=== PATIENT | male | born 1990 | race Caucasian/White ===

== ENCOUNTER 2020-02-04 02:53 | Inpatient (IN) | payer SELFPAY ==
[2020-02-04] VITALS (50 sets, daily range): BP systolic 87–142; BP diastolic 45–87; PULSE 91–143; RESP 14–32; TEMP 36.5–39.7; O2SAT 91–100; BMI 33.3; BMI 32.3
--- NOTE | 2020-02-04 02:51 | ECG_ITS ---
APPROVED REPORT Exam: Resting ECG HR:129 bpm ECG Measurements Heart Rate 129 AXES NH 164 P 44 QRSd 86 QRS 86 QT 408 T 46 QTc 597 <Conclusion> Sinus tachycardia Otherwise normal ECG Electronically signed by : Edu Coello, 02/04/2020 09:58:54
--- NOTE | 2020-02-04 02:54 | XR_ITS ---
PROCEDURE: XR CHEST PORTABLE CLINICAL HISTORY: fever COMPARISON: No exams were available for comparison FINDINGS: The cardiomediastinal silhouette and pulmonary vascularity are within normal limits. No definite lobar consolidation or collapse. There are increased markings in the lung bases greatest in the retrocardiac region on the left which may be due to vascular crowding. Upright PA and lateral chest may confirm and to exclude possibility of underlying infiltrate. No acute bony abnormalities. IMPRESSION: No definite acute finding. Please see above for detail Dictated by: Davis Sanchez MD 02/04/2020 06:17 Davis Sanchez MD in [facility] 02/04/2020 06:17
--- NOTE | 2020-02-04 02:54 | CT_ITS ---
PROCEDURE: CT HEAD/BRAIN WO CON CLINICAL INDICATION: ams Altered mental status, altered level of consciousness, confusion, disorientation COMPARISON: No exams were available for comparison TECHNIQUE: Axial images obtained. All CT scans at the facility use one or more dose reduction, viz: automated exposure control, ma/kV adjustment per patient size (including targeted exams where dose is matched to indication, i.e. head), or iterative reconstruction technique. FINDINGS: No midline shift, mass effect, intracranial hemorrhage, hydrocephalus, or extra-axial fluid collection is evident. Encephalomalacia changes in the right frontal lobe and medial aspect of the left frontal lobe. There is an old medial right orbital wall fracture is well as an old fracture of the frontal sinuses with depression in the frontal cranium with metallic mesh in place. There is no right lateral orbital wall fracture. The. No mastoid effusion. There is opacification of the sphenoid sinus on the right with moderate mucosal thickening of the sphenoid sinus centrally and right ethmoid sinus mucosal thickening. IMPRESSION: 1. No acute intracranial findings. 2. Old right orbital and old frontal calvarial fracture. 3. Sinus disease Dictated by: Davis Sanchez MD 02/04/2020 06:41 Davis Sanchez MD in [facility] 02/04/2020 06:41
--- NOTE | 2020-02-04 02:57 | HMH.EDGENADL ---
ED Disposition Clinical Impression: Bacterial meningitis, Septic shock, Seizure, Influenza Disposition: Xfer Short-Term Hosp Condition on Discharge: Serious Referrals: Hi Hogan MD [Primary Care Provider] - - Critical Care Critical Care Time: Yes Attestation: On , the high probability of a clinically significant, sudden or life threatening deterioration of the following system(s) required my full and direct attention, intervention and personal management. The time I documented below is in addition to time spent performing reported procedures but includes the following listed in this critical care notation. Total Critical Care Time: 60 Vital system(s) involved:: Shock (Septic) My critical care processes included: Assessment & monitoring of V/S, Initial and Re-exams, Data Review/Interpretation, Coordinating Care, Medication Orders and management, Documentation Medical Decision Making - Medical Records Medical records reviewed: Yes: I reviewed the patient's medical records. - Ck Inquiry Pt receiving controlled substance: No Vital Signs: 02/04/20 02:54 02/04/20 03:15 02/04/20 03:34 Temperature 103.4 F H 103 F H Temperature Source Rectal Rectal Oral Pulse Rate [Left] 139 H 128 H Respiratory Rate 26 H 24 Blood Pressure [Right Arm] 101/59 L 108/63 L Blood Pressure Mean [Right Arm] 73 78 Blood Pressure Source [Right Arm] Automatic Cuff Blood Pressure Position [Right Arm] Supine 02 Sat by Pulse Oximetry 93 L 91 L Oxygen Delivery Method Room Air Room Air Oxygen Flow Rate (LPM) 02/04/20 03:41 02/04/20 03:42 02/04/20 03:56 Temperature Temperature Source Pulse Rate [Left] 130 H Respiratory Rate 22 Blood Pressure [Right Arm] 106/58 L Blood Pressure Mean [Right Arm] 74 Blood Pressure Source [Right Arm] Automatic Cuff Blood Pressure Position [Right Arm] Sitting 02 Sat by Pulse Oximetry 91 L 91 L 92 L Oxygen Delivery Method Nasal Cannula Nasal Cannula Nasal Cannula Oxygen Flow Rate (LPM) 2 2 3 02/04/20 03:57 02/04/20 03:59 02/04/20 04:04 Temperature 101.2 F H Temperature Source Oral Pulse Rate [Left] 125 H 143 H Respiratory Rate 20 20 Blood Pressure [Right Arm] 107/50 L Blood Pressure Mean [Right Arm] 69 Blood Pressure Source [Right Arm] Automatic Cuff Blood Pressure Position [Right Arm] Sitting 02 Sat by Pulse Oximetry 92 L 93 L Oxygen Delivery Method Nasal Cannula Nasal Cannula Oxygen Flow Rate (LPM) 3 3 02/04/20 04:14 02/04/20 04:32 02/04/20 05:00 Temperature Temperature Source Pulse Rate [Left] 134 H 107 H 111 H Respiratory Rate 20 18 18 Blood Pressure [Right Arm] 109/53 L 99/55 L 108/61 L Blood Pressure Mean [Right Arm] 71 69 76 Blood Pressure Source [Right Arm] Blood Pressure Position [Right Arm] Sitting 02 Sat by Pulse Oximetry 93 L 93 L 94 L Oxygen Delivery Method Nasal Cannula Nasal Cannula Nasal Cannula Oxygen Flow Rate (LPM) 3 3 3 02/04/20 05:14 02/04/20 05:35 02/04/20 06:02 Temperature Temperature Source Pulse Rate [Left] 107 H 108 H 95 H Respiratory Rate 20 16 16 Blood Pressure [Right Arm] 121/70 117/66 96/45 L Blood Pressure Mean [Right Arm] 87 83 62 Blood Pressure Source [Right Arm] Automatic Cuff Automatic Cuff Automatic Cuff Blood Pressure Position [Right Arm] Supine Sitting Sitting 02 Sat by Pulse Oximetry 95 98 98 Oxygen Delivery Method Nasal Cannula Nasal Cannula Nasal Cannula Oxygen Flow Rate (LPM) 3 2 02/04/20 06:13 02/04/20 06:39 02/04/20 06:57 Temperature 99.9 F H Temperature Source Oral Pulse Rate [Left] 104 H 105 H 109 H Respiratory Rate 18 18 Blood Pressure [Right Arm] 117/63 98/52 L 116/81 Blood Pressure Mean [Right Arm] 81 67 92 Blood Pressure Source [Right Arm] Automatic Cuff Automatic Cuff Blood Pressure Position [Right Arm] Supine 02 Sat by Pulse Oximetry 94 L 95 94 L Oxygen Delivery Method Nasal Cannula Nasal Cannula Nasal Cannula Oxygen Flow Rate (LPM) 3 3 02/04/20
--- NOTE | 2020-02-04 03:02 | PC.NURSE ---
ATTENDING PROVIDER NOTIFIED OF SEPSIS CRITERIA: ELEVATED RR, LOW BP, AMS, AND ELEVATED FEVER. DEFERRING SEPSIS 30ML/KG AT THIS TIME. 1 NS LITER ADMINISTERED
--- NOTE | 2020-02-04 03:17 | PC.NURSE ---
PT gone to CT
[2020-02-04 03:18] LABS: Microscopic, Urine URINE MICROSCOPIC (MICROSCOPIC)
[2020-02-04 03:23] LABS: Appearance,Urine CLEAR (Clear); Bilirubin,Urine Negative (Negative); Blood, Urine TRACE-I (Negative); Color,Urine YELLOW (Yellow); Glucose,Urine (UA) Negative (Negative); Ketones,Urine Negative (Negative); Leukocyte Esterase,Urine Negative (Negative); Nitrate,Urine Negative (Negative); Protein,Urine Negative (Negative); Urobilinogen,Urine 0.2 EU/dl (0.2)
[2020-02-04 03:26] LABS: Basophils % 0.1 % (0.1-2.0); Eosinophils % 0.2 % (0.1-12.0); Hematocrit 43.8 % (42.0-52.0); Hemoglobin 15.1 g/dL (14.1-18.0); Lymphocytes # 0.8 K/mm3 (0.7-4.5); Lymphocytes % 4.3 % (10-50); Mean Corpuscular HGB Conc 34.5 g/dL (31.8-35.4); Mean Corpuscular Hemoglobin 29.5 pg (27.0-31.2); Mean Corpuscular Volume 85.4 fl (80-94); Mean Platelet Volume 7.9 fl (7.4-10.4); Monocytes # 0.7 K/mm3 (0.1-1.0); Neutrophils # 16.3 K/mm3 (1.8-7.8); Neutrophils % 91.4 % (37.0-80.0); Platelet Count 351 K/mm3 (142-424); Red Blood Count 5.13 M/mm3 (4.60-6.20); Red Cell Distribution Width 13.2 % (11.5-17.5); White Blood Count 17.8 K/mm3 (4.8-10.8)
[2020-02-04 03:28] LABS: MANUAL DIFFERENTIAL MANUAL DIFFERENTIAL (MANUAL DIFF)
[2020-02-04 03:30] LABS: Alanine Aminotransferase 32 U/L (12-78); Albumin Level 4.5 g/dl (3.5-5.0); Albumin/Globulin Ratio 1.5 (1.1-1.8); Alkaline Phosphatase 87 U/L (38-126); Anion Gap 16.2 mEq/L (5-15); Aspartate Amino Transferase 45 U/L (17-59); Bilirubin,Total 0.5 mg/dl (0.2-1.3); Blood Urea Nitrogen 14 mg/dl (9-20); Calcium 10.2 mg/dl (8.4-10.2); Carbon Dioxide 23 mmol/L (22.0-30.0); Chloride 110 mmol/L (98-107); Creatinine Clearance Estimated 154 mL/min (50-200); Estimated Glomerular Filt Rate 73 ml/min (>60); GFR (African American) 88 ML/MIN (>60); Glucose 120 mg/dl (74-100); Potassium 3.2 mmoL/L (3.5-5.1); Sodium 146 mmol/L (136-145); Total Protein,Serum 7.5 g/dl (6.3-8.2)
[2020-02-04 03:32] LABS: Bacteria,Urine Trace /lpf; Hyaline Casts,Urine Occasional #/lpf (0)
[2020-02-04 03:36] LABS: Lactic Acid 4.8 mmol/L (0.7-2.1)
--- NOTE | 2020-02-04 03:37 | PC.NURSE ---
SEPSIS CRITERIA MET FURTHER WITH LACTIC ELEVATION. ATTENDING DEFERRED BROAD SPECTRUM ABX AT THIS TIME
--- NOTE | 2020-02-04 03:37 | PC.NURSE ---
Notified MD of lactic of 4.2 He advised to go ahead and start the sepsis bolus. Order entered. Pt has liter hanging at this time. Waiting on chest x-ray to decide on antibiotics
[2020-02-04 03:40] LABS: Eosinophils % 1 % (0-3); Lymphocytes % 3 % (10-50); Neutrophils % 87 % (42-76); Platelet Estimate Normal; RBC Morphology Normal; Total Cells Counted 100
--- NOTE | 2020-02-04 03:40 | PC.NURSE ---
Patient placed on 2 lpm nasal cannula
--- NOTE | 2020-02-04 03:44 | PC.NURSE ---
PORTABLE CHEST COMPLETED BEDSIDE BY SILVIO
[2020-02-04 03:46] LABS: Coronavirus 19 IgG Antibody Positive (Negative); Coronavirus 19 IgM Antibody Negative (Negative)
[2020-02-04 03:53] LABS: Strep Scrn Group A (Rapid) Negative (Negative)
--- NOTE | 2020-02-04 03:57 | PC.NURSE ---
advised he wanted to do a lumbar puncture. materials gathered and pt set up for procedure
--- NOTE | 2020-02-04 04:33 | PC.NURSE ---
spoke with Sean from pharmacy about vanc dosing. HE advised to give a one time dose of 2250mg and if we admitted the patient to enter a consult for the morning and they would dose him
[2020-02-04 04:50] LABS: Glucose,CSF 52 mg/dl (40-70)
[2020-02-04 04:52] LABS: Appearance,CSF Cloudy (Clear)
[2020-02-04 04:54] LABS: Polynuclear WBCs,CSF 84 %; Red Blood Cell,CSF 46 cells/uL (0); Volume,CSF 4 mL; White Blood Cell,CSF 5413 cells/uL (0-5)
[2020-02-04 04:55] LABS: Mononuclear WBCs,CSF 16 %
--- NOTE | 2020-02-04 05:02 | PC.NURSE ---
Dr.Norfleet alves
--- NOTE | 2020-02-04 05:09 | PC.NURSE ---
notified of critical lab results
--- NOTE | 2020-02-04 05:13 | PC.NURSE ---
spoke with Dr. Schofield and we are going to attempt to transfer pt at this time. If unable to obtain a bed then we can admit him to [facility]
--- NOTE | 2020-02-04 05:14 | PC.NURSE ---
At 4am pt was prepared for lumbar puncture, procedure consent signed and supplies were gathered. PT placed on the side of the bed in a sitting position with head on a table. JYOTI Trujillo and JYOTI Mayes assisting patient sitting up on the side of the bed. Dr. Cha cleaned the site and used 20g spinal needle to perform procedure. Pt tolerated procedure well. 4 vials of CSF were obtained and were cloudy in appearance. Tubes were labeled at bedside and JYOTI Mayes walked tubes to the lab.
--- NOTE | 2020-02-04 05:31 | PC.NURSE ---
Spoke with [facility]. Stated they would call us back
--- NOTE | 2020-02-04 05:36 | PC.NURSE ---
Dr Lipscomb (urology) at [facility] paged at this time.
--- NOTE | 2020-02-04 05:54 | PC.NURSE ---
speaking with from [facility]. HE advised that was on divert and they would not place pt on waitlist
--- NOTE | 2020-02-04 05:58 | PC.NURSE ---
[facility] added patient to waiting list
--- NOTE | 2020-02-04 06:00 | PC.NURSE ---
Calling [facility]
--- NOTE | 2020-02-04 06:03 | PC.NURSE ---
[facility] stated the hospitalist will call back
--- NOTE | 2020-02-04 06:09 | PC.NURSE ---
speaking to dr combs from [facility]
--- NOTE | 2020-02-04 06:11 | PC.NURSE ---
[facility] stated the pt was accepted but did not have a bed at this time and would be placed on a waiting list
--- NOTE | 2020-02-04 06:13 | PC.NURSE ---
Notified lab of in house covid swab. Approved by warehouser
--- NOTE | 2020-02-04 06:29 | PC.NURSE ---
Lab at bedside
--- NOTE | 2020-02-04 06:29 | PC.NURSE ---
speaking to dr baltazar at [facility]
--- NOTE | 2020-02-04 06:35 | PC.NURSE ---
advised pt is also accepted at [place] and will be going to the ICU. Did not have any idea on bed status at this time. Asked [facility] to bring a bed from second floor to help keep the patient comfortable.
--- NOTE | 2020-02-04 06:57 | PC.NURSE ---
CHECKING DEPARTMENT SUPERVISOR HAS BROUGHT INPATIENT BED DOWN UNTIL BED ASSIGNMENT FROM [facility] OR [facility]
--- NOTE | 2020-02-04 07:05 | PC.NURSE ---
House brought down bed for patient. We moved patient over to bed and repositioned.
[2020-02-04 07:14] LABS: Reflex Lactic Add Lactic Reflex
--- NOTE | 2020-02-04 07:47 | PC.NURSE ---
[facility] still no beds available, they will call back approx 11 am.
[2020-02-04 08:03] LABS: Lactic Acid Follow Up (RFLX 1) 2.2 mmol/L (0.7-2.1)
--- NOTE | 2020-02-04 08:19 | PC.NURSE ---
Addendum entered by Sherron Bentley RN 02/04/20 11:55: GAVE PATIENT SEVERAL GLASSES OF WATER, PT SAID SHE WILL USE THE FACET TO GIVE HIM MORE NEEDED. Original Note: Pt at beside at this time, pt is resting in the bed, denies pain after medication given.
--- NOTE | 2020-02-04 09:00 | PC.NURSE ---
REPOSITIONED PT IN BED AND ADMINISTERED MEDICATION FOR HIS GIRON. ALSO GAVE PT 2 GLASSES OF WATER.
--- NOTE | 2020-02-04 09:02 | PC.NURSE ---
[facility]y hunter and [facility] advised of Pt positive Covid test.
[2020-02-04 10:00] LABS: Reflex Lactic (2 hrs) Add Lactic Reflex
--- NOTE | 2020-02-04 10:00 | PC.NURSE ---
NOTIFIED THAT SHE CANNOT LEAVE THE ROOM AND IF SHE DOES SHE MUST NOT COME BACK IN D/T PT ISOLATION STATUS, STATES SHE UNDERSTANDS
--- NOTE | 2020-02-04 11:00 | PC.NURSE ---
PT RESTING AND HAS NO COMPLAINTS OTHER THAN A GLASS A WATER, 3 GLASSES OF WATER PROVIDED.
--- NOTE | 2020-02-04 11:15 | PC.NURSE ---
[facility] called they are trying to discharge pt and make availability of a room, they will call back. pt called she was also given this update.
--- NOTE | 2020-02-04 11:45 | PC.NURSE ---
ADMISSIONS LET PT MOTHER BACK, NOTIFIED ADMISSIONS THAT THERE ARE TO BE NO MORE VISITORS D/T PT ISOLATION STATUS, NOTIFIED MOTHER THAT SHE MUST STAY IN THE ROOM AND MUST WEAR PPE, MOTHER STATES SHE UNDERSTANDS.
--- NOTE | 2020-02-04 12:05 | PC.NURSE ---
PROVIDED PT WITH 2 PITCHES OF WATER, CALL S[facility], AND UPDATE ON POC
--- NOTE | 2020-02-04 12:08 | PC.NURSE ---
PT MOTHER ASKED IF SHE COULD ADMINISTER PT HOME MEDICATION FOR DIABETES INSIPIDUS, DR ROJAS STATED THAT WAS FINE FOR HIM TO HAVE IT.
--- NOTE | 2020-02-04 12:35 | PC.NURSE ---
[facility] CALLED AND STATED THEY WILL POSSIBLY HAVE A BED AVAILABLE LATER ON TODAY
--- NOTE | 2020-02-04 13:28 | PC.NURSE ---
pt family offered a meal tray, she stated not at this time and that he was asleep and that she would let us know if he woke up and if he wsanted anything.
--- NOTE | 2020-02-04 13:34 | PC.NURSE ---
Dr Schofield accepted pt for admission. the hospitals we have been waiting for are not availableto provide a bed at this time. a bed.
[2020-02-04 13:41] LABS: Lactic Acid Follow up (RFLX 2) 1.1 mmol/L (0.7-2.1)
--- NOTE | 2020-02-04 15:34 | PC.NURSE ---
UPDATED MOTHER AND PT ON POC, MOTHER ASKED ABOUT THE VISITOR POLICY IN THE COVID UNIT, EDUCATED HER THAT THERE ARE NO VISITORS ALLOWED IN THE UNIT, MOTHER STATES SHE WISHES TO SPEAK TO DESKTOP MANAGER, NOTED HOUSE AT THIS TIME
--- NOTE | 2020-02-04 15:43 | PC.NURSE ---
HOUSE AT BESIDE
--- NOTE | 2020-02-04 16:00 | PC.NURSE ---
REFILLED PT PITCHER OF WATER AT THIS TIME
--- NOTE | 2020-02-04 16:08 | PC.NURSE ---
[facility] called stating it was not looking good for bed placement at this time.
--- NOTE | 2020-02-04 16:09 | PC.NURSE ---
TERRY AND THIS NURSE SPOKE TO MOTHER AND PT , BOTH REFUSE FOR PT TO BE ADMITTED UNLESS THEY CAN BE AT HIS BEDSIDE. SPEAKING TO RIA HAHN, DIRECTER OF NURSING SERVICES.
--- NOTE | 2020-02-04 16:15 | PC.NURSE ---
HOUSE SPEAKING TO RIA HAHN AT THIS TIME
--- NOTE | 2020-02-04 16:32 | PC.NURSE ---
ACCOMPANIED TERRY AT THIS TIME TO SPEAK WITH PT AND MOTHER ON WHAT RIA HAS TOLD US. WE ARE GIVING THE MOTHER PRIVILEGES TO STAY WITH PATIENT AND GAVE HER STRICT RULES ON STAYING WITH HIM. PT MUST WEAR THE APPROPRIATE PPE DIRECTED BY [facility]OB[facility]. PT MOTHER AGREES TO THESE TERMS, ALSO EDUCATED MOTHER THAT SHE IS PUTTING HERSELF AT RISK FOR BEING AROUND HIM AND THAT WE ARE NOT RESPONSIBLE FOR HER GETTING SICK, PT MOTHER STATES SHE AGREES TO THOSE TERMS WELL. EDUCATED MOTHER THAT IF SHE DOES NOT FOLLOW THESE RULES SHE WILL BE ESCORTED OUT BY THE POLICE.
--- NOTE | 2020-02-04 16:34 | PC.NURSE ---
Spoke with Loretta Nunez, reproduction machine loader services regarding patients mothers request to remain with patient in covid unit. Loretta states she may remain with the patient on the covid unit but she must wear atleast a surgical mask, she must remain in the room as much as possible, they cannot trade out visitors, only she may remain with patient. I spoke with patients mother and she is agreeable to patient being admitted to the covid unit, she verbalized understanding of the requirements to remain with the patient. I also provided education to her regarding the risks of exposing herself to covid 19, meningitis, and flu A. She states she understands the risks of her exposure and does not hold the hospital liable if she were to contract any of these. Covid nurse contacted at this time to transport patient to covid unit.
--- NOTE | 2020-02-04 17:06 | HMH.HP ---
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 He was brought to the emergency room in the science liaison hours this morning with fever, headache, possible seizure, and altered mental status. His states he was sick about 2 weeks ago with fever and mild cough but seemed to get better. Last night he began complaining of a severe headache. He took some Tylenol and went to bed. He then started having rigors in bed and at some point vomited and seemed to feel better. After returning to bed he began thrashing around and became incoherent as if he was having a seizure. His checked his temperature and it was up to 103. EMS was called and he was brought to the emergency room. Please refer to ER record for details. Because of his presentation with fever headache and altered mental status as well as findings of nuchal rigidity on physical exam he was worked up for meningitis. His initial CBC showed a white count of 17,000. Lumbar puncture was performed with findings of greater than 5000 white blood cells, predominantly PMNs as well as elevated protein. Also of note, he was positive for influenza A and on COVID serologies his IgG was positive and IgM negative. Lactic acid was elevated at 4.4. He was started on fluid bolus per sepsis protocol. He also was given IV dexamethasone, IV Rocephin and IV vancomycin after blood cultures were obtained. Because of the critical nature of his illness, attempts were made to transfer him to a higher level of care. The [facility] was contacted and found to be on diversion and not accepting patients. [facility] was willing to accept the patient but did not have a bed immediately available and placed the patient on a waiting list. [facility] accepted the patient for the next available ICU bed at about 7 AM this morning. By 3 PM this afternoon, the transfer had still not happened and and neither hospital could give an estimated time for the next available bed. The patient has therefore now been admitted to [facility] for ongoing treatment pending transfer as soon as a bed is available. Also note that his COVID nasal swab has returned positive for acute infection. [facility] History Medical History: Denies:: Cancer, Diabetes Mellitus Type 1, Diabetes Mellitus Type 2, MRSA *Have you ever received a pneumonia vaccine?: No *Have you received a flu vaccine this season?: No Other Medical History: Reports: Other (Central diabetes insipidus) Other Surgeries: Yes: Other (Facial plastic surgery, ORIF ankle fracture) Amputation: No Fractures: Yes (FACIAL/SKULL DUE TO fall off scaffolding) - *Social History Smoking Status: Never smoker Alcohol Intake: never *Occupational Status:: employed *Travel in the last 8 weeks: None Family Hx:: No significant family history Review of Systems - Constitutional Reports chills, Reports fever(s), Denies weight loss - Eyes Denies change in vision - ENT Denies dizziness, Denies ear pain, Denies nasal congestion, Denies nasal discharge, Denies sore throat - *Cardiovascular Denies chest pain, Denies shortness of breath - *Respiratory Denies chest congestion, Denies cough, Denies shortness of breath - *Gastrointestinal Denies abdominal pain, Denies vomiting blood - *Genitourinary Reports urinary frequency, Denies difficulty urinating - *Musculoskeletal Denies joint pain - Integumentary/Breasts Denies non-healing lesions - *Neurologic Reports confusion, Reports seizure-like activity, Reports other (Per HPI), Denies abnormal hearing - Psychiatric Denies anxiety, Denies depression - Endocrine Reports increased urination - Hematologic/Lymphatic Denies easy bruising - Allergic/Immunologic Denies throat swelling Meds Home Medications
--- NOTE | 2020-02-04 20:26 | PC.NURSE ---
Verified pt's at home med of Desmopressing Acetate 0.2 mg PO BID with [facility]. Ok'd to give med. Med is currently locked in ICU clean utility room and will be labeled tomorrow with in-house pharmacy label per [facility].
--- NOTE | 2020-02-04 21:36 | PC.NURSE ---
Ro with [facility] called to check on status of pt. Informed this nurse that she will call q4-6h to check on status of pt. Stated that their are no ICU beds available tonight, but potentially there will be some tomorrow AM, pending discharges. [phone]
[2020-02-05] VITALS: BP 110/60; PULSE 93; RESP 18; TEMP 37.9; O2SAT 95
--- NOTE | 2020-02-05 03:04 | PC.NURSE ---
Pt has rested continuously t/o shift. Pt was febrile x1 this shift, PRN acetaminophen was administered per JUL. Pt has remained afebrile since. Rios is draining clear, dark yellow urine with a strong odor per gravity. Mother has remained at bedside and continues to wear appropriate PPE in and out of room when going to the restroom. Pt has showed NSR on heart monitor with short episodes of Sinus tach t/o this shift. No other complaints or acute changes at this time. Will continue to monitor.
[2020-02-05 04:26] VITALS: BP 97/66; PULSE 64; RESP 16; TEMP 37.2; O2SAT 94
--- NOTE | 2020-02-05 05:04 | PC.NURSE ---
Ro from [facility] spoke to Elliot Hooks RN. Stated there are still no available ICU beds but will continue to update of any changes.
[2020-02-05 05:05] VITALS: BMI 33.3
--- NOTE | 2020-02-05 05:20 | PC.NURSE ---
[facility] called. Stated there are currently no beds available at this time and will notify when one becomes available.
--- NOTE | 2020-02-05 05:42 | PC.NURSE ---
Pt remains in stable condition this shift. I concur with all findings documented by and care given by JYOTI Grossman this shift.
--- NOTE | 2020-02-05 05:46 | PC.NURSE ---
Ro from [facility] called. Stated that there will possibly be an available bed this morning after shift change. Stated she will have someone call and confirm as soon as possible.
[2020-02-05 06:42] LABS: Eosinophils # 0.1 K/mm3 (0.0-0.4); Eosinophils % 0.4 % (0.1-12.0); Hematocrit 40.9 % (42.0-52.0); Hemoglobin 13.7 g/dL (14.1-18.0); Lymphocytes % 4.1 % (10-50); Mean Corpuscular HGB Conc 33.5 g/dL (31.8-35.4); Mean Corpuscular Volume 86.4 fl (80-94); Mean Platelet Volume 8.2 fl (7.4-10.4); Monocytes # 0.5 K/mm3 (0.1-1.0); Monocytes % 2.3 % (1.7-9.3); Neutrophils # 21.8 K/mm3 (1.8-7.8); Neutrophils % 93.2 % (37.0-80.0); Platelet Count 331 K/mm3 (142-424); Red Blood Count 4.73 M/mm3 (4.60-6.20); Red Cell Distribution Width 13.1 % (11.5-17.5); White Blood Count 23.4 K/mm3 (4.8-10.8)
[2020-02-05 06:47] LABS: MANUAL DIFFERENTIAL MANUAL DIFFERENTIAL (MANUAL DIFF)
[2020-02-05 06:50] LABS: Alanine Aminotransferase 16 U/L (12-78); Albumin Level 3.8 g/dl (3.5-5.0); Albumin/Globulin Ratio 1.2 (1.1-1.8); Alkaline Phosphatase 71 U/L (38-126); Aspartate Amino Transferase 24 U/L (17-59); Bilirubin,Total 0.4 mg/dl (0.2-1.3); Blood Urea Nitrogen 8 mg/dl (9-20); Carbon Dioxide 25 mmol/L (22.0-30.0); Chloride 117 mmol/L (98-107); Creatinine Clearance Estimated 206 mL/min (50-200); Estimated Glomerular Filt Rate 101 ml/min (>60); GFR (African American) 122 ML/MIN (>60); Globulin 3.1 g/dL (1.3-3.2); Glucose 152 mg/dl (74-100); Sodium 148 mmol/L (136-145); Total Protein,Serum 6.9 g/dl (6.3-8.2)
[2020-02-05 07:09] LABS: Calcium 9.1 mg/dl (8.4-10.2)
[2020-02-05 07:10] LABS: Lymphocytes % 2 % (10-50); Neutrophils % 90 % (42-76); Platelet Estimate Normal; RBC Morphology Normal; Total Cells Counted 100
--- NOTE | 2020-02-05 07:54 | PC.NURSE ---
[facility] called to check on the patient and get an updated report on him. They said they would call back shortly once they discussed everything and made a decision on if they wanted to accept him or not.
[2020-02-05 07:55] VITALS: BP 123/69; PULSE 103; RESP 18; TEMP 37.4; O2SAT 93
--- NOTE | 2020-02-05 08:00 | PC.NURSE ---
[facility] called to let us know a bed still isn't available. They will call periodically throughout the day to update us.
[2020-02-05 08:10] VITALS: O2SAT 93
--- NOTE | 2020-02-05 08:39 | HMH.ACPN2 ---
Internal Medicine - PN: Subj *Date: 02/05/20 *Time: 08:39 Interval history: He rested fairly well through the night. No new complaints this morning. His headache is a little better. His eyes are sore . He is not eating much but drinking well. He feels thirsty. No further nausea. Minimal cough. No shortness of breath. Exam Vital signs and Labs for Last 24 Hours: Temp Pulse Resp BP Pulse Ox 99.3 F 103 H 18 123/69 93 L 02/05/20 07:55 02/05/20 07:55 02/05/20 07:55 02/05/20 07:55 02/05/20 08:10 Laboratory Results - last 24 hr 02/04/20 13:30: Lactate 1.1 02/05/20 06:30: WBC 23.4 H* D, RBC 4.73, Hgb 13.7 L, Hct 40.9 L, MCV 86.4, MCH 29.0, MCHC 33.5, RDW 13.1, Plt Count 331, MPV 8.2, Neut % (Auto) 93.2 H, Lymph % (Auto) 4.1 L, [place] % (Auto) 2.3, Eos % (Auto) 0.4, Baso % (Auto) 0.0 L, Neut # (Auto) 21.8 H, Lymph # (Auto) 1.0, Snyder # (Auto) 0.5, Eos # (Auto) 0.1, Baso # (Auto) 0.0, Total Counted 100, Neutrophils % (Manual) 90 H, Band Neutrophils % 8.0, Lymphocytes % (Manual) 2 L, Platelet Estimate Normal, RBC Morphology Normal 02/05/20 06:30: Sodium 148 H, Potassium 4.0 D, Chloride 117 H, Carbon Dioxide 25, Anion Gap 10.0, BUN 8 L D, Creatinine 0.90 D, Estimated Creat Clear 206, Estimated GFR 101, Est GFR ( Amer) 122 D, Glucose 152 H, Calcium 9.1 D, Total Bilirubin 0.4, AST 24 D, ALT 16 D, Alkaline Phosphatase 71, Total Protein 6.9, Albumin 3.8 D, Globulin 3.1, Albumin/Globulin Ratio 1.2 I & O for Last 24 hours: Intake & Output 02/02/20 02/03/20 02/04/2002/04/20 11:59 11:59 11:59 11:59 Intake Total 9390 / 9390 Output Total 5600 / 5600 5925 / 5925 Balance -5600 / -5600 3465 / 3465 Weight 260 lb 259 lb 14.4 oz Microbiology Reports for the Last 24 Hours: Microbiology 02/04/20 04:19 Cerebral Spinal Fluid Gram Stain - Final 02/04/20 04:19 Cerebral Spinal Fluid CSF Culture - Preliminary Gram Positive Cocci 02/04/20 03:08 Blood Blood Culture - Preliminary Gram Positive Cocci 02/04/20 03:06 Blood Blood Culture - Preliminary 02/04/20 03:03 Urine,Clean Catch Urine Culture - Preliminary NO GROWTH AFTER 24 HOURS 02/04/20 06:30 Nasopharyngeal Coronavirus COVID-19 PCR - Final Narrative: He is awake and alert. Appears in no distress. Color is good. Vital signs are stable. Still has lungs are clear to auscultation. Heart is regular. Abdomen is soft and nondistended. No tenderness. Assessment and Plan (1) Pneumococcal meningitis Current visit: Yes Status: Acute Category: Medical Code(s): G00.1 - Pneumococcal meningitis (2) Pneumococcal sepsis Current visit: Yes Status: Acute Category: Medical Code(s): A40.3 - Sepsis due to Streptococcus pneumoniae (3) Influenza Current visit: Yes Status: Acute Category: Medical Code(s): J11.1 - Influenza due to unidentified influenza virus with other respiratory manifestations (4) Coronavirus infection Current visit: Yes Status: Acute Category: Medical Code(s): B34.2 - Coronavirus infection, unspecified (5) Diabetes insipidus Current visit: Yes Status: Acute Category: Medical Code(s): E23.2 - Diabetes insipidus - Assessment and plan all Dx Assessment and Plan for all problems:: Clinically stable this morning. White blood cell count is further elevated to 23,000 this morning likely related to steroids. PCR on his blood culture is showing streptococcal pneumoniae. Sensitivities are pending. We will continue current antibiotic regimen pending final sensitivities. Still awaiting transfer to tertiary care center for infectious disease and neurology consultation. I have spoken with Dr. Alicja Swanson, hospitalist at [facility], and provided an update of his condition. They may have a bed available for him this morning.
--- NOTE | 2020-02-05 08:48 | PC.NURSE ---
Dr. Schofield called to say he spoke with hospitalist at [facility] and pt has been accepted there. He said hopefully they will call shortly w a bed assignment.
--- NOTE | 2020-02-05 08:57 | PC.NURSE ---
Spoke w [facility]. They're requesting a face sheet be faxed over and they will call back shortly w bed assignment.
--- NOTE | 2020-02-05 09:00 | PC.NURSE ---
Faxed facesheet to [facility].
--- NOTE | 2020-02-05 10:03 | P.CONPHA_ITS ---
- Pharmacy Consult Date: 02/05/20 Time: 10:03 Referring provider: DR. BLUM Reason for Consult:: VANCOMYCIN DOSING Allergies and ADEs:: Allergies Allergy/AdvReac Type Severity Reaction Status Date / Time No Known Allergies Allergy Verified 02/04/20 18:50 Home Medications:: Home Medications Medication Instructions Recorded Confirmed Type Desmopressin Acetate 0.2 mg PO BID 02/04/20 02/04/20 History Height: 1.88 m Weight: 117.889 kg Laboratory Results:: Laboratory Results - last 24 hr 02/04/20 13:30: Lactate 1.1 02/05/20 06:30: WBC 23.4 H* D, RBC 4.73, Hgb 13.7 L, Hct 40.9 L, MCV 86.4, MCH 29.0, MCHC 33.5, RDW 13.1, Plt Count 331, MPV 8.2, Neut % (Auto) 93.2 H, Lymph % (Auto) 4.1 L, [place] % (Auto) 2.3, Eos % (Auto) 0.4, Baso % (Auto) 0.0 L, Neut # (Auto) 21.8 H, Lymph # (Auto) 1.0, [place] # (Auto) 0.5, Eos # (Auto) 0.1, Baso # (Auto) 0.0, Total Counted 100, Neutrophils % (Manual) 90 H, Band Neutrophils % 8 .0, Lymphocytes % (Manual) 2 L, Platelet Estimate Normal, RBC Morphology Normal 02/05/20 06:30: Sodium 148 H, Potassium 4.0 D, Chloride 117 H, Carbon Dioxide 25, Anion Gap 10.0, BUN 8 L D, Creatinine 0.90 D, Estimated Creat Clear 206, Estimated GFR 101, Est GFR ( Amer) 122 D, Glucose 152 H, Calcium 9.1 D, Total Bilirubin 0.4, AST 24 D, ALT 16 D, Alkaline Phosphatase 71, Total Protein 6.9, Albumin 3.8 D, Globulin 3.1, Albumin/Globulin Ratio 1.2 Medical History: Denies:: Cancer, Diabetes Mellitus Type 1, Diabetes Mellitus Type 2, MRSA Assessment and Plan (1) Pneumococcal meningitis Current visit: Yes Status: Acute Category: Medical Code(s): G00.1 - Pneumococcal meningitis (2) Pneumococcal sepsis Current visit: Yes Status: Acute Category: Medical Code(s): A40.3 - Sepsis due to Streptococcus pneumoniae (3) Influenza Current visit: Yes Status: Acute Category: Medical Code(s): J11.1 - Influenza due to unidentified influenza virus with other respiratory manifestations (4) Coronavirus infection Current visit: Yes Status: Acute Category: Medical Code(s): B34.2 - Coronavirus infection, unspecified (5) Diabetes insipidus Current visit: Yes Status: Acute Category: Medical Code(s): E23.2 - Diabetes insipidus - Assessment and plan all Dx Assessment and Plan for all problems:: BASED ON PATIENT FACTORS, RECOMMEND VANCOMYCIN 2250 MG IV Q12H. WILL OBTAIN VANCOMYCIN TROUGH LEVEL PRIOR TO 4TH DOSE. PHARMACY WILL FOLLOW DAILY AND ADJUST APPROPRIATE.
--- NOTE | 2020-02-05 10:11 | PC.NURSE ---
[facility] called to update us and let us know they still don't have a bed available.
[2020-02-05 11:11] VITALS: BP 99/61; PULSE 78; RESP 16; TEMP 37.5; O2SAT 93
--- NOTE | 2020-02-05 11:29 | PC.NURSE ---
[facility] called with a bed assignment. Pt is going to [id number]. Report was called to Jossie Desai RN. [facility] was notified of transfer and stated they would be up shortly.
--- NOTE | 2020-02-05 11:32 | P.CONPHA_ITS ---
[facility] Pharmacy VTE Monitoring - Patient Demographics Admission date: 02/04/20 Report Date: 02/05/20 Time: 11:32 Allergies/Adverse Reactions: Patient Allergies No Known Allergies Allergy (Verified 02/04/20 18:50) Height: 1.88 m Weight: 117.889 kg Patient Problems: Current Active Problems Bacterial meningitis (Acute) Septic shock (Acute) Seizure (Acute) Influenza (Acute) Pneumococcal sepsis (Acute) Diabetes insipidus (Acute) Coronavirus infection (Acute) Pneumococcal meningitis (Acute) - VTE Risk Labs: VTE Related Lab Results Hgb 13.7 g/dL (14.1-18.0) L 02/05/20 06:30 Hct 40.9 % (42.0-52.0) L 02/05/20 06:30 Plt Count 331 K/mm3 (142-424) 02/05/20 06:30 BUN 8 mg/dl (9-20) L D 02/05/20 06:30 Creatinine 0.90 mg/dl (0.66-1.25) D 02/05/20 06:30 Estimated Creat Clear 206 mL/min (50-200) 02/05/20 06:30 Was VTE Risk Assessment Performed: Yes VTE Score: 0 VTE Risk Level: Very Low Risk - Prophylaxis VTE Prophylaxis Ordered?: Yes Types of VTE Prophylaxis: TEDS Knee High, Pharmacological Location of Applied Device: Bilateral Lower Extremeties Pharmacologic Type: Enoxaparin
--- NOTE | 2020-02-05 12:16 | PC.NURSE ---
A&0X4. PT HAS TOLERATED ROOM AIR WELL THROUGHOUT SHIFT. RESPIRATIONS REGULAR AND UNLABORED. LUNGS SOUNDS BILATERALLY CLEAR. PT REPORTS OCCASIONAL NONPRODUCTIVE COUGH. +2 PULSES NOTED THROUGHOUT. NO EDEMA NOTED. NSR ON TELE. ACTIVE BOWEL SOUNDS HEARD IN ALL 4 QUADRANTS. SOFT AND TENDER ABDOMEN. NO BM THUS FAR. SERRANO IN PLACE W CLEAR YELLOW URINE FLOWING FREELY INTO CATHETER BAG. NO KINKS NOTED. HAND FAST FOOD CREW LEAD EQUAL. NO REPORTS OF PAIN, NAUSEA, OR SOB THROUGHOUT SHIFT. PT IS AWAITING TRANSFER TO [facility]. MOM AT BEDSIDE. PROVIDED MOM WITH CONTACT INFO TO CALL AND CHECK ON HIM ONCE PT ARRIVES TO [facility]. SHE IS AGREEABLE TO PT BEING TRANSFERRED. NS INFUSING AT 125ML/HR. PT IS CURRENTLY LYING IN BED W CALL LIGHT WITHIN REACH. BED IN LOWEST POSITION. VSS. WILL CONTINUE TO MONITOR.
--- NOTE | 2020-02-05 12:30 | PC.NURSE ---
[facility] arrived to transfer pt to [facility], [place].
--- NOTE | 2020-02-07 14:04 | HMH.DCSUM ---
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 He was brought to the emergency room in the home health care case manager hours this morning with fever, headache, possible seizure, and altered mental status. His states he was sick about 2 weeks ago with fever and mild cough but seemed to get better. Last night he began complaining of a severe headache. He took some Tylenol and went to bed. He then started having rigors in bed and at some point vomited and seemed to feel better. After returning to bed he began thrashing around and became incoherent as if he was having a seizure. His checked his temperature and it was up to 103. EMS was called and he was brought to the emergency room. Please refer to ER record for details. Because of his presentation with fever headache and altered mental status as well as findings of nuchal rigidity on physical exam he was worked up for meningitis. His initial CBC showed a white count of 17,000. Lumbar puncture was performed with findings of greater than 5000 white blood cells, predominantly PMNs as well as elevated protein. Also of note, he was positive for influenza A and on COVID serologies his IgG was positive and IgM negative. Lactic acid was elevated at 4.4. He was started on fluid bolus per sepsis protocol. He also was given IV dexamethasone, IV Rocephin and IV vancomycin after blood cultures were obtained. Because of the critical nature of his illness, attempts were made to transfer him to a higher level of care. The [facility] was contacted and found to be on diversion and not accepting patients. [facility] was willing to accept the patient but did not have a bed immediately available and placed the patient on a waiting list. [facility] accepted the patient for the next available ICU bed at about 7 AM this morning. By 3 PM this afternoon, the transfer had still not happened and and neither hospital could give an estimated time for the next available bed. The patient has therefore now been admitted to [facility] for ongoing treatment pending transfer as soon as a bed is available. Also note that his COVID nasal swab has returned positive for acute infection. <Tran Justin - 02/07/20 14:12> Hospital Course Hospital Course: The patient was admitted with bacterial meningitis presumably pneumococcal as his preliminary blood culture was growing Streptococcus and his CSF fluid Gram stain showed cocci in chains. He was also positive for influenza A and COVID-19. He was started on IV Rocephin and IV vancomycin and was also given a dose of dexamethasone initially in the emergency room. He received IV fluid boluses per sepsis protocol and his repeat lactic acid did decrease. He was continued on IV dexamethasone per IDSA guidelines. By the time he arrived to the floor, he was feeling somewhat better. His headache had eased and he had some nausea but was able to eat a few bites of food and take some liquids. Attempts were made to transfer him to a higher level of care for consultation with neurology, infectious disease, and possibly endocrinology, but no beds were available in [place] and he was placed on a wait list. By 02/05/2020, his headache improved slightly. He was not able to eat very much but could drink. He had minimal cough and no shortness of breath. His nausea resolved and his lactic acid returned normal. His white count did elevate, but this was likely due to the steroids. PCR on his blood culture and CSF culture showed Streptococcus pneumoniae. [facility] did call with a bed assignment and [facility] was notified to transfer the patient to [place]. He was transferred
[2020-02-08 09:47] LABS: POC Glucose,Bedside 124 (70-110)
== END 2020-02-05 12:45 | disposition short-term general hospital (02) | DRG 94 ==
LOC: ER 08:02 → ICU 17:54
PROVIDERS: Admitting Provider Family Medicine; Emergency Provider Emergency Medicine; PCP Family Medicine; Visit Provider Family Medicine
DX: G00.1 Pneumococcal meningitis (principal); U07.1 COVID-19; A40.3 Sepsis due to Streptococcus pneumoniae; E23.2 Diabetes insipidus; J11.1 Influenza due to unidentified influenza virus with other respiratory manifestations
CPT/HCPCS: 36415; 62270; 70450; 71045; 80053; 81001; 82945; 82962; 83605; 84155; 85007; 85025; 86328; 87040; 87070; 87077; 87086; 87186; 87205; 87275; 87276; 87430; 89051; 93005; 96365; 96366; 96367; 96375; 99284; J2405; J3370; U0003

== ENCOUNTER → 2020-02-11 20:12 | Outpatient (CLI) | payer SELFPAY ==
[2020-02-11 21:15] VITALS: BP 118/71; PULSE 105; RESP 20; TEMP 36.8; BMI 33.0
== END ==
PROVIDERS: PCP Family Medicine; Visit Provider Student in an Organized Health Care Education/Training Program
DX: G00.9 Bacterial meningitis, unspecified (principal)
CPT/HCPCS: G0463

== ENCOUNTER → 2020-02-12 08:40 | Outpatient (CLI) | payer SELFPAY ==
[2020-02-12 08:25] VITALS: BP 114/77; PULSE 96; RESP 16; TEMP 36.4
[2020-02-12 20:30] VITALS: BP 111/76; PULSE 112; RESP 20; TEMP 36.2
[2020-02-12 23:38] VITALS: BMI 32.9
== END ==
PROVIDERS: PCP Family Medicine; Visit Provider Student in an Organized Health Care Education/Training Program
DX: G00.9 Bacterial meningitis, unspecified (principal); A41.9 Sepsis, unspecified organism
CPT/HCPCS: 96365

== ENCOUNTER 2020-02-13 08:26 | Outpatient (CLI) | payer SELFPAY ==
[2020-02-13 08:35] VITALS: BP 121/78; PULSE 110; RESP 20; TEMP 36.1; O2SAT 98
[2020-02-13 09:15] VITALS: BP 115/71; PULSE 105; RESP 18; O2SAT 97
[2020-02-13 19:36] VITALS: BMI 33.0
[2020-02-13 19:39] VITALS: BP 144/84; PULSE 107; RESP 17; TEMP 36.6; O2SAT 95
--- NOTE | 2020-02-13 20:06 | PC.NURSE ---
Per SRNA he was in the building at [facility] with no mask on. He was educated tonight to call the same number that he has been and ask for the house repairer before coming in. Educated to stay in his vehicle until Surgical Assistant comes to get him so that we can make sure he has the proper PPE. He verbalized understanding.
[2020-02-13 20:10] VITALS: BP 146/82; PULSE 100; RESP 17; TEMP 36.6; O2SAT 95
== END 2020-02-13 20:10 | disposition home or self-care (01) ==
PROVIDERS: PCP Student in an Organized Health Care Education/Training Program; Visit Provider Internal Medicine Infectious Disease
DX: G00.9 Bacterial meningitis, unspecified (principal); A41.9 Sepsis, unspecified organism
CPT/HCPCS: 96365; G0463

== ENCOUNTER 2020-02-14 08:31 | Outpatient (CLI) | payer SELFPAY ==
[2020-02-14 19:44] VITALS: BP 120/72; PULSE 114; RESP 17; TEMP 36.7; O2SAT 96
[2020-02-14 19:47] VITALS: BMI 33.0
[2020-02-14 20:30] VITALS: BP 121/70; PULSE 100; RESP 17; TEMP 37.1; O2SAT 100
== END 2020-02-14 20:30 | disposition home or self-care (01) ==
LOC: INF 08:31
PROVIDERS: Visit Provider Internal Medicine Infectious Disease
DX: G00.9 Bacterial meningitis, unspecified (principal)
CPT/HCPCS: 96365; G0463

== ENCOUNTER → 2020-02-15 08:42 | Outpatient (CLI) | payer SELFPAY ==
[2020-02-15 09:18] VITALS: BP 120/75; PULSE 109; RESP 18; TEMP 36.6; O2SAT 95
== END ==
PROVIDERS: Visit Provider Internal Medicine Infectious Disease
DX: G00.9 Bacterial meningitis, unspecified (principal); A41.9 Sepsis, unspecified organism
CPT/HCPCS: 96365